=== PATIENT | male | born 1965 | race Caucasian/White ===

== ENCOUNTER 2019-05-06 11:53 | Inpatient (IN) | payer OTHER ==
[~2019-05-06] VITALS: Ht 167.6 cm; Wt 25.9 kg
[2019-05-06 11:53] VITALS: BP_SYST 85
[2019-05-06] MEDS ORDERED: NOREPINEPHRINE BITARTRATE 4 MG in NS 246 ML IV ONE (12:15)
[2019-05-06 13:02] LABS: CALCIUM 8.6 mg/dL (8.4-11.0); CREATININE 5.51 mg/dL (0.55-1.30); POTASSIUM 4.9 mmol/L (3.5-5.1)
[2019-05-06] MEDS ORDERED: NOREPINEPHRINE 4 MG/4 ML VIAL IV ONE ×2 (13:05→21:26)
[2019-05-06 13:15] LABS: ALBUMIN 2.8 g/dL (3.4-4.8); TOTAL BILIRUBIN 5.5 mg/dL (0.0-1.0)
[2019-05-06 13:36] LABS: HEMATOCRIT 31.3 % (36-54); HEMOGLOBIN 10.4 g/dL (14.0-18.0); MEAN CORPUSCULAR HEMOGLOBIN 35 pg (27-31); MEAN CORPUSCULAR HGB CONC 33 % (32-36); MEAN CORPUSCULAR VOLUME 107 fL (79.0-98.0); RED BLOOD CELL COUNT(AUTO) 2.94 MIL/uL (4.2-6.2); RED CELL DISTRIBUTION WIDTH 18.3 % (9.0-15.0); WHITE BLOOD COUNT (AUTO) 27.8 K/uL (4.8-10.8)
[2019-05-06 13:58] LABS: PLATELET COUNT (AUTO) 25 K/uL (130-430)
[2019-05-06 14:32] LABS: BAND % (MANUAL) 3 % (0-6); BASOPHILS % (MANUAL) 0 % (0-2); EOSINOPHILS % (MANUAL) 2 % (0-7); LYMPHOCYTES % (MANUAL) 1 % (20-46); MONOCYTES % (MANUAL) 3 % (0-11)
[2019-05-06 14:48] LABS: INR 1.7 (0.80-1.20); PROTHROMBIN TIME 17.3 SECS (9.5-12.5)
[2019-05-06] MEDS ORDERED: VANCOMYCIN HCL 1,000 MG in D5W 250 ML IV ONE (15:30)
[2019-05-06] MEDS ORDERED: PIPERACILLIN/TAZO 3.38 GM in D5W 50 ML IV ONE (15:30)
[2019-05-06] MEDS ORDERED: NS 1000 ML IV.SOLN IV ONE (15:30)
[2019-05-06] MEDS ORDERED: PIPERACILLIN/TAZOBACTAM 3.375 GM/VIAL (ZOSYN) IV ONE (15:41)
[2019-05-06] MEDS ORDERED: VANCOMYCIN HCL 1000 MG/VIAL IV ONE (15:42)
[2019-05-06] MEDS ORDERED: FOLI-43 PO (16:36)
[2019-05-06] MEDS ORDERED: LACT10SO6 PO (16:36)
[2019-05-06] MEDS ORDERED: FURO-150 PO (16:36)
[2019-05-06] MEDS ORDERED: MIDO5TAB PO (16:36)
[2019-05-06] MEDS ORDERED: RIFA550T5 PO (16:36)
[2019-05-06] MEDS ORDERED: THIA100T73 PO (16:36)
[2019-05-06] MEDS ORDERED: PRED10TA PO (16:36)
[2019-05-06] MEDS ORDERED: PRO40 PO (16:36)
[2019-05-06] MEDS ORDERED: MULT-1117 PO (16:36)
[2019-05-06] MEDS ORDERED: POTASSIUM CHLORIDE 20 MEQ TAB.PRT.SR PO PRN (17:45)
[2019-05-06] MEDS ORDERED: MUPIROCIN 2% TOPICAL OINTMENT 22 GM NS PRN (17:45)
[2019-05-06] MEDS ORDERED: ZOLPIDEM TARTRATE 5 MG TABLET PO PRN (17:45)
[2019-05-06] MEDS ORDERED: DOCUSATE SODIUM 100 MG CAPSULE PO PRN (17:45)
[2019-05-06] MEDS ORDERED: MORPHINE 2 MG/ML INJ. SYRINGE IVP PRN ×2 (17:45)
[2019-05-06] MEDS ORDERED: MAGNESIUM SULFATE 50 ML IV PRN (17:45)
[2019-05-06] MEDS ORDERED: ACETAMINOPHEN 325 MG TABLET PO PRN (17:45)
[2019-05-06] MEDS ORDERED: ONDANSETRON HCL 4 MG/2 ML VIAL IVP PRN (17:45)
[2019-05-06] MEDS ORDERED: LORazepam 2 MG/ML VIAL IVP PRN (17:45)
[2019-05-06] MEDS ORDERED: *CUBICIN 6 MG/KG Q48H/PHARMACY XX PRN (18:30)
[2019-05-06] MEDS ORDERED: MEROPENEM 500 MG IVPB PREMIX 50 ML IV SCH (19:00)
[2019-05-06] MEDS ORDERED: NS IV SCH ×2 (19:00→20:00)
[2019-05-06] MEDS ORDERED: DAPTOMYCIN IV SCH ×2 (19:00→20:00)
[2019-05-06] MEDS ORDERED: ALBUMIN HUMAN 25% 100 ML IV ONE (20:00)
[2019-05-06 23:00] VITALS: BP_SYST 105
[2019-05-07] VITALS (23 sets, daily range): BP systolic 99–182
[2019-05-07 06:39] LABS: BASOPHILS % (AUTO) 0.2 % (0.0-2.0); EOSINOPHILS % (AUTO) 0.2 % (0.0-4.0); HEMOGLOBIN 9.9 g/dL (14.0-18.0); LYMPHOCYTES # (AUTO) 1.1 K/uL (1.0-5.5); MEAN CORPUSCULAR HEMOGLOBIN 36 pg (27-31); MEAN CORPUSCULAR HGB CONC 34 % (32-36); MEAN CORPUSCULAR VOLUME 106 fL (79.0-98.0); MONOCYTES # (AUTO) 0.9 K/uL (0.0-1.0); MONOCYTES % (AUTO) 3.8 % (1.7-9.3); NEUTROPHILS # (AUTO) 20.4 K/uL (1.8-7.7); RED BLOOD CELL COUNT(AUTO) 2.75 MIL/uL (4.2-6.2); WHITE BLOOD COUNT (AUTO) 22.5 K/uL (4.8-10.8)
[2019-05-07 07:19] LABS: CALCIUM 8.6 mg/dL (8.4-11.0); CREATININE 6.21 mg/dL (0.55-1.30); POTASSIUM 5.1 mmol/L (3.5-5.1)
[2019-05-07] MEDS ORDERED: NS IV SCH (07:45)
[2019-05-07] MEDS ORDERED: DAPTOMYCIN IV SCH (07:45)
[2019-05-07] MEDS ORDERED: DAPTOmycin 500 MG in NS 50 ML IV SCH (07:45)
[2019-05-07 08:19] LABS: VANCOMYCIN,RANDOM 17.2 ug/mL
[2019-05-07] MEDS ORDERED: FUROSEMIDE 20 MG TABLET PO SCH (09:00)
[2019-05-07] MEDS ORDERED: FOLIC ACID 1 MG TABLET PO SCH (09:00)
[2019-05-07] MEDS ORDERED: THIAMINE HCL 100 MG TABLET PO SCH (09:00)
[2019-05-07] MEDS: MIDODRINE HCL 5 MG TABLET (PROAMATINE) PO SCH ×3 (09:00→21:10)
[2019-05-07] MEDS ORDERED: PANTOPRAZOLE SODIUM 40 MG TAB PO SCH (09:00)
[2019-05-07] MEDS ORDERED: MULTIVITAMINS TAB 1 TABLET PO SCH (09:00)
[2019-05-07] MEDS: MEROPENEM 500 MG in NS 50 ML IV SCH ×2 (09:13→21:10)
[2019-05-07] MEDS: RIFAXIMIN 550 MG TABLET PO SCH ×3 (09:15→21:10)
[2019-05-07 09:39] LABS: PLATELET COUNT (AUTO) 29 K/uL (130-430)
[2019-05-07 09:40] LABS: NEUTROPHILS % (AUTO) 90.8 % (40.0-70.0)
[2019-05-07] MEDS ORDERED: MERI500 IV (10:12)
[2019-05-07] MEDS ORDERED: DAPT350V IV (10:12)
== END 2019-05-07 21:30 | disposition short-term general hospital (02) | DRG 314 ==
LOC: SED 11:53 → SIC 16:46
PROVIDERS: ADMIT General Practice; ATTEND General Practice
PROC: 02HV33Z Insertion of Infusion Device into Superior Vena Cava, Percutaneous Approach (ICD-10-PCS; principal; 2019-05-07)
PROC: B548ZZA Ultrasonography of Superior Vena Cava, Guidance (ICD-10-PCS; 2019-05-07)
DX: T80.211A Bloodstream infection due to central venous catheter, initial encounter (principal); A41.9 Sepsis, unspecified organism; K76.7 Hepatorenal syndrome; N18.6 End stage renal disease; R65.21 Severe sepsis with septic shock; N17.0 Acute kidney failure with tubular necrosis; J69.0 Pneumonitis due to inhalation of food and vomit; I12.0 Hypertensive chronic kidney disease with stage 5 chronic kidney disease or end stage renal disease; K76.6 Portal hypertension; D61.818 Other pancytopenia; D68.9 Coagulation defect, unspecified; Y84.8 Other medical procedures as the cause of abnormal reaction of the patient, or of later complication, without mention of misadventure at the time of the procedure; F10.10 Alcohol abuse, uncomplicated; F17.210 Nicotine dependence, cigarettes, uncomplicated; D69.59 Other secondary thrombocytopenia; K70.31 Alcoholic cirrhosis of liver with ascites; Z99.2 Dependence on renal dialysis; Y92.89 Other specified places as the place of occurrence of the external cause; Z79.899 Other long term (current) drug therapy
CPT/HCPCS: 36415; 71045; 76700-TC; 80048; 80053; 80202-TC; 82140-TC; 82962; 83036; 83605; 83735-TC; 83880; 84484; 85007; 85025; 85027; 85610-TC; 85730-TC; 87040-TC; 87081; 93005; 96365; 99285; C1751; J0878; J2185; J2543; J3370; J7050; P9046